=== PATIENT | female | born 1985 | race African-American/Black ===

== ENCOUNTER 2022-03-17 01:55 | Emergency (ER) | payer BC ==
[~2022-03-17] VITALS: Ht 160 cm; Wt 70.3 kg
[2022-03-17 02:05] VITALS: BP 133/81
--- NOTE | 2022-03-17 02:05 | NUR ---
BIB PARTNER FOR C/O COUGH AND SOB SINCE AM. PT HAS HX OF ASTHMA. PATIENT IS AAOX4. AMBULATORY. ABLE TO MAKE NEEDS KNOWN. VITALS CHECKED
[2022-03-17] MEDS ORDERED: ALBUTEROL FS 2.5 MG/3 ML VIAL.NEB ONE (02:27)
[2022-03-17] MEDS ORDERED: DEXAMETHASONE SOD PHOSPHATE 4 MG/ML VIAL IM ONE (02:30)
[2022-03-17] MEDS ORDERED: ALBUTEROL FS 2.5 MG/0.5 ML VIAL.NEB NEB ONE (02:30)
[2022-03-17] MEDS ORDERED: PRED50TA PO (02:49)
[2022-03-17] MEDS ORDERED: DEXAMETHASONE SOD PHOSPHATE 10 MG/ML VIAL ONE (02:52)
--- NOTE | 2022-03-17 03:00 | NUR ---
Patient discharged to home in stable condition. Written and verbal after care instructions given. Patient verbalizes understanding of instruction.
== END 2022-03-17 03:01 | disposition home or self-care (01) ==
LOC: ER 01:59
DX: J98.01 Acute bronchospasm (principal); Z88.1 Allergy status to other antibiotic agents
CPT/HCPCS: 99283; 96372; 94640; J1100